=== PATIENT | female | born 1995 | race Caucasian/White ===

== ENCOUNTER 2017-05-06 17:59 | Emergency (ER) | payer OTHER ==
[2017-05-06 19:22] LABS: ABS Basophils 0 10^3/ul (0-0.2); ABS Eosinophils 0.3 10^3/ul (0-0.6); ABS Lymphocytes 1.9 10^3/ul (1.0-4.8); ABS Monocytes 0.5 10^3/ul (0-0.8); ABS Nucleated RBC 0 10^3/ul; Eosinophil % 3.4 % (0-6); Hematocrit 35 % (35-47); Hemoglobin 12.3 g/dl (12.0-16.0); Lymphocyte % 24.9 % (25-47); Mean Corpuscular HGB Conc 35 g/dl (31-36); Mean Corpuscular Hemoglobin 31 pg (27-31); Mean Corpuscular Volume 89 fL (80-97); Mean Platelet Volume 10 um3 (7.4-10.4); Nucleated Red Blood Cells % 0; Platelet Count 155 10^3/ul (150-450); Red Blood Count 3.96 10^6/ul (4.0-5.4); Red Cell Distribution Width 13 % (10.5-15); White Blood Count 7.7 10^3/ul (3.5-10.8)
[2017-05-06 19:34] LABS: INR 0.94 (0.77-1.02)
[2017-05-06 19:36] LABS: EGFR Non-African American 151.9 (>60)
[2017-05-06 19:56] LABS: Urine Appearance Clear; Urine Blood 1+ (Negative); Urine Color Colorless; Urine Ketones Negative (Negative); Urine Protein Negative (Negative); Urine Specific Gravity 1.001 (1.010-1.030); Urine Urobilinogen Negative (Negative)
--- NOTE | 2017-05-06 20:01 | RAD ---
INDICATION: 20 week with bleeding COMPARISON: None TECHNIQUE: Real-time sector scans were performed for the purposes of evaluation. This is not a anatomic survey. FINDINGS: There is a single intrauterine gestation in breech presentation. The placenta is anterior in location. There is a marginal placenta previa. There are no findings of abruption. cardiac activity is documented at 153 beats per minute. There is movement. The amniotic fluid index is normal. The cervix is closed measuring 3.9 cm. The estimated gestational age based on biparietal diameter, head circumference, abdominal circumference, and femur length corresponds to 19 weeks 5 days, 20 weeks 2 days, 20 weeks 2 days, and 21 weeks 0 days. The composite age is 20 weeks 3 days. The estimated due date is September 20, 2017. The weight is 355 g IMPRESSION: 20 WEEK 3 DAY GESTATION WITH CONFIRMATION OF CARDIAC ACTIVITY. MARGINAL PLACENTA PREVIA.
[2017-05-06 20:37] VITALS: BP 105/57
--- NOTE | 2017-05-06 20:46 | ED ---
Tiffanie Bustillos Thomas, scribed for Marcos Jhaveri MD on 05/06/17 at 1909 . - HPI Summary HPI Summary: The patient is a [id number] 21 year-old female complaining of light vaginal bleeding that began two hours ago. She has pelvic cramping. Her last ultrasound was last week. G1, P0. - History of Current Complaint Chief Complaint: EDOBProblems Stated Complaint: 20 WEEKS PREG/BLEEDING/CRAMPING Time Seen by Provider: 05/06/17 18:19 Hx Obtained From: Patient Chief Complaint: Vaginal Bleeding Onset/Duration: Still Present Timing: Constant Current Severity: Mild Pain Intensity: 5 Location of Pain: Other: - Pelvic Aggravating Factors: Nothing Alleviating Factors: Nothing Associated Signs and Symptoms: Positive: Vaginal Bleeding or Discharge - mild - Allergies/Home Medications Allergies/Adverse Reactions: Allergies Allergy/AdvReac Type Severity Reaction Status Date / Time MS Clarithromycin Allergy Hives Verified 06/22/12 12:11 [Clarithromycin] MS Erythromycin Allergy Hives Verified 06/22/12 12:11 [Erythromycin] PMH/Surg Hx/FS Hx/Imm Hx Opthamlomology History: Denies: Hx Legally Blind EENT History: Denies: Hx Hearing Aid Infectious Disease History: No Infectious Disease History: Denies: Traveled Outside the [place] in Last 30 Days - Family History Known Family History: Positive: Other - Patient denies relevant FHx - Social History Alcohol Use: None Substance Use Type: Reports: None Smoking Status (MU): Never Smoked Tobacco Review of Systems Negative: Fever Positive: other - Vaginal bleeding, pelvic cramping All Other Systems Reviewed And Are Negative: Yes Physical Exam - Summary Physical Exam Summary: Appearance: The patient is well-nourished in no acute distress and in no acute pain. Skin: The skin is warm and dry and skin color reflects adequate perfusion. HEENT: ~The head is normocephalic and atraumatic. The pupils are equal and reactive. The conjunctivae are clear and without drainage. ~Nares are patent and without drainage. ~Mouth reveals moist mucous membranes and the throat is without erythema and exudate. ~The external ears are intact. The ear canals are patent and without drainage. The tympanic membranes are intact. Neck: the neck is supple with full range of motion and non-tender. There are no carotid bruits. ~There is no neck vein distension. Respiratory: Chest is non-tender. ~Lungs are clear to auscultation and breath sounds are symmetrical and equal. Cardiovascular: Heart is regular rate and rhythm. ~There is no murmur or rub auscultated. ~~There is no peripheral edema and pulses are symmetrical and equal. Abdomen: The abdomen is soft. She has a gravid uterus. It is nontender. There are normal bowel sounds heard in all four quadrants and there is no organomegaly palpated. Musculoskeletal: There is no back tenderness noted. ~Extremities are non-tender with full range of motion. ~There is good capillary refill. ~There is no peripheral edema or calf tenderness elicited. Neurological: Patient is alert and oriented to person, place and time. ~The patient has symmetrical motor strength in all four extremities. ~Cranial nerves are grossly intact. Deep tendon reflexes are symmetrical and equal in all four extremities. Psychiatric: The patient has an appropriate affect and does not exhibit any anxiety or depression. - Physical Exam Triage Information Reviewed: Yes Vital Signs Reviewed: Yes Diagnostics - Vital Signs Vital Signs Temp Pulse Resp BP Pulse Ox 05/06/17 18:07 98.9 F 76 16 113/63 100 - Laboratory Lab Results: Lab Results 05/06/17 05/06/17 05/06/17 Range/Units 19:13 19:13 19:13 WBC 7.7 (3.5-10.8) 10^3/ul RBC 3.96 L (4.0-5.4) 10^6/ul Hgb 12.3 (12.0-16.0) g/dl Hct 35 (35-47) % MCV 89 (80-97) fL MCH 31 (27-31) pg MCHC 35 (31-36) g/dl RDW 13 (10.5-15) % Plt Count 155 (150-450) 10^3/ul MPV 10 (7.4-10.4) um3 Neut % (Auto) 64.6 (38-83) % Lymph % (Auto) 24.9 L (25-47) % [place] % (Auto) 6.8 (1-9) % Eos % (Auto) 3.4 (0-6) % Baso % (Auto) 0.3 (0-2) % Absolute Neuts (auto) 5.0 (1.5-7.7) 10^3/ul Absolute Lymphs (auto) 1.9 (1.0-4.8) 10^3/ul Absolute Monos (auto) 0.5 (0-0.8) 10^3/ul Absolute Eos (auto) 0.3 (0-0.6) 10^3/ul Absolute Basos (auto) 0 (0-0.2) 10^3/ul Absolute Nucleated RBC 0 10^3/ul Nucleated RBC % 0 INR (Anticoag Therapy) 0.94 (0.77-1.02) Sodium 137 (133-145) mmol/L Potassium 3.5 (3.5-5.0) mmol/L Chloride 106 (101-111) mmol/L Carbon Dioxide 25 (22-32) mmol/L Anion Gap 6 (2-11) mmol/L BUN 6 (6-24) mg/dL Creatinine 0.52 (0.51-0.95) mg/dL Est GFR ( Amer) 195.4 (>60) Est GFR (Non-Af Amer) 151.9 (>60) BUN/Creatinine Ratio 11.5 (8-20) Glucose 82 (70-100) mg/dL Lactic Acid (0.5-2.0) mmol/L Calcium 9.2 (8.6-10.3) mg/dL Total Bilirubin 0.80 (0.2-1.0) mg/dL AST 14 (13-39) U/L ALT 7 (7-52) U/L Alkaline Phosphatase 37 (34-104) U/L Total Protein 6.3 L (6.4-8.9) g/dL Albumin 3.7 (3.2-5.2) g/dL Globulin 2.6 (2-4) g/dL Albumin/Globulin Ratio 1.4 (1-3) Urine Color Urine Appearance Urine pH (5-9) Ur Specific [place] (1.010-1.030) Urine Protein (Negative) Urine Ketones (Negative) Urine Blood (Negative) Urine Nitrate (Negative) Urine Bilirubin (Negative) Urine Urobilinogen (Negative) Ur Leukocyte Esterase (Negative) Urine WBC (Auto) (Absent) Urine RBC (Auto) (Absent) Urine Bacteria (Absent) Urine Glucose (Negative) Blood Type Antibody Screen 05/06/17 05/06/17 05/06/17 Range/Units 19:13 19:13 19:33 WBC (3.5-10.8) 10^3/ul RBC (4.0-5.4) 10^6/ul Hgb (12.0-16.0) g/dl Hct (35-47) % MCV (80-97) fL MCH (27-31) pg MCHC (31-36) g/dl RDW (10.5-15) % Plt Count (150-450) 10^3/ul MPV (7.4-10.4) um3 Neut % (Auto) (38-83) % Lymph % (Auto) (25-47) % [place] % (Auto) (1-9) % Eos % (Auto) (0-6) % Baso % (Auto) (0-2) % Absolute Neuts (auto) (1.5-7.7) 10^3/ul Absolute Lymphs (auto) (1.0-4.8) 10^3/ul Absolute Monos (auto) (0-0.8) 10^3/ul Absolute Eos (auto) (0-0.6) 10^3/ul Absolute Basos (auto) (0-0.2) 10^3/ul Absolute Nucleated RBC 10^3/ul Nucleated RBC % INR (Anticoag Therapy) (0.77-1.02) Sodium (133-145) mmol/L Potassium (3.5-5.0) mmol/L Chloride (101-111) mmol/L Carbon Dioxide (22-32) mmol/L Anion Gap (2-11) mmol/L BUN (6-24) mg/dL Creatinine (0.51-0.95) mg/dL Est GFR ( Amer) (>60) Est GFR (Non-Af Amer) (>60) BUN/Creatinine Ratio (8-20) Glucose (70-100) mg/dL Lactic Acid 0.5 (0.5-2.0) mmol/L Calcium (8.6-10.3) mg/dL Total Bilirubin (0.2-1.0) mg/dL AST (13-39) U/L ALT (7-52) U/L Alkaline Phosphatase (34-104) U/L Total Protein (6.4-8.9) g/dL Albumin (3.2-5.2) g/dL Globulin (2-4) g/dL Albumin/Globulin Ratio (1-3) Urine Color Colorless Urine Appearance Clear Urine pH 7.0 (5-9) Ur Specific [place] 1.001 L (1.010-1.030) Urine Protein Negative (Negative) Urine Ketones Negative (Negative) Urine Blood 1+ H (Negative) Urine Nitrate Negative (Negative) Urine Bilirubin Negative (Negative) Urine Urobilinogen Negative (Negative) Ur Leukocyte Esterase Negative (Negative) Urine WBC (Auto) Absent (Absent) Urine RBC (Auto) Trace(0-2/hpf) (Absent) Urine Bacteria Absent (Absent) Urine Glucose Negative (Negative) Blood Type AB Positive Antibody Screen Negative Result Diagrams: 05/06/17 19:13 05/06/17 19:13 Lab Statement: Any lab studies that have been ordered have been reviewed, and results considered in the medical decision making process. - Additional Comments Diagnostic Additional Comments: ultrasound Interpreted by radiologist. Impression: 20 WEEK 3 DAY GESTATION WITH CONFIRMATION OF CARDIAC ACTIVITY. MARGINAL PLACENTA PREVIA. Dr. Jhaveri has reviewed this report. Course/Dx - Course Course Of Treatment: Ms. Dodson presented with one episode of seeing blood when she wiped. She is 20 weeks and has no other C/O. Her W/U showed only a mild placenta previa and she was quite stable here in the ED. - Diagnoses Provider Diagnoses: Second trimester vaginal bleeding Discharge - Discharge Plan Condition: Stable Disposition: HOME Patient Education Materials: Placenta Previa (ED) Referrals: Lavell Ho MD [Medical Doctor] - 05/07/17 Additional Instructions: Tomorrow morning, call the office of Dr. Ho, CHIEF GROWTH OFFICER. Return to the emergency department for any new or worsening symptoms. The documentation as recorded by the Tiffanie charles Thomas accurately reflects the service I personally performed and the decisions made by me, Marcos Jhaveri MD.
== END 2017-05-06 20:39 | disposition home or self-care (01) ==
LOC: ED 17:59
DX: O46.92 Antepartum hemorrhage, unspecified, second trimester (principal); Z3A.20 20 weeks gestation of pregnancy; R25.2 Cramp and spasm
CPT/HCPCS: 36415; 76815; 80053; 81003; 81015; 83605; 85025; 85610; 86850; 86900; 86901; 99283

== ENCOUNTER 2017-09-26 22:04 | Inpatient (IN) | payer OTHER ==
[2017-09-26] MEDS ORDERED: Promethazine INJ(RESTRICTED)* 25 MG/ML 1 ML VIAL IV ONE (23:00)
[2017-09-26] MEDS ORDERED: Nalbuphine* 10 MG/ML 1 ML VIAL IV ONE (23:00)
[2017-09-26 23:35] LABS: Hematocrit 37 % (35-47); Hemoglobin 12.5 g/dl (12.0-16.0); Mean Corpuscular HGB Conc 34 g/dl (31-36); Mean Corpuscular Hemoglobin 31 pg (27-31); Mean Corpuscular Volume 92 fL (80-97); Mean Platelet Volume 9.7 um3 (7.4-10.4); Platelet Count 243 10^3/ul (150-450); Red Blood Count 4.05 10^6/ul (4.00-5.40); Red Cell Distribution Width 14 % (10.5-15); White Blood Count 14.6 10^3/ul (3.5-10.8)
[2017-09-27] MEDS ORDERED: Penicillin G Potassium IV* 5,000,000 UNITS in NS 0.9% 100 ML* 100 ML IVPB ONE (02:40)
--- NOTE | 2017-09-27 02:49 | HP ---
General Information - Reason for Visit active labor - General Information Maternal Age: 21 Grav: 0 Para: 0 SAB: 0 IEA: 0 Estimated Due Date: 09/22/17 Determined By: LMP Maternal Blood Type and Rh: AB Positive - Results this Serology/RPR Result: Non-Reactive Rubella Result: Non-Immune HBsAg Result: Negative HIV Result: Negative GBS Culture Result: Positive Past Medical History Delivery History: See Records Pertinent Past Medical History: Non-Contributory Pertinent Past Surgical History: None Pertinent Family History: See Records Family History Comment: DM, bipolar disorder - Antepartal Records Antepartal Records: Reviewed, Complicated by: - GBS+, low lying placenta (resolved), echogenic foci Review of Systems Constitutional: Uncomfortable CV Complaint: No Respiratory: Shortness of Breath: No Gastrointestinal: Nausea, Vomiting Genitourinary: No Dysuria, No Bleeding, No Leaking Fluid, Spotting Musculoskeletal: Contractions Neurological: No Headache, No Visual Changes Movement: Normal Exam Allergies/Adverse Reactions: Allergies MS Clarithromycin [Clarithromycin] Allergy (Verified 09/26/17 22:42) Hives MS Erythromycin [Erythromycin] Allergy (Verified 09/26/17 22:42) Hives T: 99, P:88, R:20, BP:113/64, 96% Lab Values - Entire Visit: Laboratory Tests 09/26/17 09/26/17 23:25 23:25 WBC 14.6 H RBC 4.05 Hgb 12.5 Hct 37 MCV 92 MCH 31 MCHC 34 RDW 14 Plt Count 243 MPV 9.7 Blood Type AB Positive Antibody Screen Negative - Measurements Height: 5 ft 4 in Weight: 155 lb Weight in lbs: 155.493678 Body Mass Index (BMI): 26.6 Pre- Weight: 125 lb Weight Gained This : 30 lbs and 0 ozs - Exam Breast: Breast Exam Deferred CVA: No CVA Tenderness Extremities: No Edema Heart: Normal Rhythm/Heart Sounds HEENT: No Significant Findings Lungs: Clear Bilaterally Rectal: Rectal Exam Deferred Reflexes: DTR 2+ Thyroid: No Thyromegaly - Abdominal Exam Abdomen Exam: Fundal Height Consistent with Dates - Ultrasound/Biophysical Profile Ultrasound Status: Not Done Targeted Exam Findings Estimated Weight: 8lbs Presenting Part: Vertex Membrane Status: Intact Bleeding/Discharge: Bloody Show EFM Findings - External Monitor Findings Baseline Heart Rate: 140 External Monitor Findings: Accelerations Present, No Pattern of Variable or Late Decelerations, Variability Moderate, Baseline Stable Contractions: Regular Contraction Frequency: 3-4min Assessment/Plan - Assessment 21 y.o. Active labor - Obstetrical Risk Factors Obstetrical Risk Factors: GBS Positive - Plan Plan: Antibiotic Prophylaxis, Admit - Anticipate Vaginal Delivery - Date/Time of Admission Date of Admission: 09/27/17 Time of Admission: 01:00
[2017-09-27] MEDS ORDERED: OBEPIDURAL* 250 ML EPIDURAL ONE (02:55)
[2017-09-27] MEDS ORDERED: EPHEDrine (Pressors)* 50 MG/ML VIAL IV PUSH PRN ×2 (03:33)
[2017-09-27] MEDS ORDERED: Sodium Citrate/Citric Acid* 15 ML UDC PO PRN (03:33)
[2017-09-27] MEDS ORDERED: Famotidine TAB* 20 MG PO PRN (03:33)
[2017-09-27] MEDS ORDERED: Phenylephrine IV* 40 MCG/ML 10 ML SYRINGE IV PUSH PRN ×2 (03:33)
[2017-09-27] MEDS ORDERED: OBEPIDURAL* 250 ML EPIDURAL SCH (04:00)
[2017-09-27] MEDS: Penicillin G Potassium IV* 2,500,000 UNITS in NS 0.9% 100 ML* 100 ML IVPB SCH ×2 (07:40→11:41)
--- NOTE | 2017-09-27 08:09 | PN ---
Progress Note - Progress Note Date of Service: 09/27/17 SOAP: Subjective: [Pt c/o increased rectal pressure all the time. -LOF, -VB, +FM. Pt continues to have pain controlled by epidural. ] Objective: [T:98.8, BP: 115/57, P:101. FHT: Baseline 150, +accels, -decels, min variability. Ctx: 2-4 Cervix: 9/100/-1 ] Assessment: [21. y.o. 40w 5d, Labor FHT: Cat 1] Plan: [1) AROM- clear, bloody 2) Position changes for decent 3) Reevaluate PRN]
--- NOTE | 2017-09-27 09:17 | PN ---
Progress Note - Progress Note Date of Service: 09/27/17 Note: Pt c/o increased pressure and nausea. cervical exam unchanged. Advised pt continue position changes for asynclitism and drink some apple juice reevaluate in 30 min or sooner PRN.
[2017-09-27] MEDS ORDERED: Oxytocin in LR* 20 UNITS/1,000 ML BAG IVPB ONE (12:27)
[2017-09-27] MEDS ORDERED: Dibucaine 1% 28.35 GM TUBE PR PRN (13:06)
[2017-09-27] MEDS ORDERED: Measles, Mumps,Rubella VACC* 0.5 ML/VIAL SUBCUT ONE (13:06)
[2017-09-27] MEDS ORDERED: Glycerin ADULT SUPP PR PRN (13:06)
[2017-09-27] MEDS ORDERED: Misoprostol TAB* 200 MCG PR ONE (13:06)
[2017-09-27] MEDS ORDERED: Acetaminophen TAB* 325 MG PO PRN (13:06)
[2017-09-27] MEDS ORDERED: Witch Hazel PAD* JAR TOPICAL PRN (13:06)
--- NOTE | 2017-09-27 13:11 | PROCNOTE ---
[facility] OB: Delivery Note - Delivery A Date of : 09/27/17 Time of : 12:26 Sex: Female Score 1 Minute: 9 Score 5 Minutes: 9 Gestational Age in Weeks and Days at Delivery: 40 Weeks and 5 Days Delivery Method: Spontaneous Vaginal Labor: Spontaneous Amniotic Fluid: Bloody Estimated Blood Loss: 300 Anesthesia/Analgesia: IM/IV, CEI for Labor Delivered By: Rosy Asif - Nursery Level of Nursery: Regular/Bedside - Perineum Perineal Injury: Perineal Laceration, 1st Degree Perineal Repair: By Delivering Practioner - Events Delivery Events of Note: Full Course of Antibiotics Delivery Events of Note Comment: nuchal cord x 1 easily reduced
[2017-09-27] MEDS ORDERED: Oxytocin in LR* 20 UNITS/1,000 ML BAG IVPB SCH (14:00)
[2017-09-27] MEDS: Ibuprofen TAB* 600 MG PO PRN ×2 (14:07→20:18)
[2017-09-27] MEDS: Docusate CAP* 100 MG PO SCH ×2 (14:07→20:18)
[2017-09-27] MEDS ORDERED: Simethicone TAB* 80 MG TAB.CHEW PO SCH (17:30)
[2017-09-28] MEDS: Ibuprofen TAB* 600 MG PO PRN ×4 (04:44→22:29)
[2017-09-28 05:54] LABS: ABS Basophils 0.1 10^3/ul (0-0.2); ABS Eosinophils 0.3 10^3/ul (0-0.6); ABS Lymphocytes 3.3 10^3/ul (1.0-4.8); ABS Monocytes 1.2 10^3/ul (0-0.8); ABS Neutrophils 9.4 10^3/ul (1.5-7.7); ABS Nucleated RBC 0 10^3/ul; Eosinophil % 2.2 % (0-6); Hematocrit 33 % (35-47); Hemoglobin 11.1 g/dl (12.0-16.0); Lymphocyte % 23.5 % (25-47); Mean Corpuscular HGB Conc 34 g/dl (31-36); Mean Corpuscular Hemoglobin 31 pg (27-31); Mean Corpuscular Volume 92 fL (80-97); Mean Platelet Volume 9.3 um3 (7.4-10.4); Nucleated Red Blood Cells % 0.1; Platelet Count 195 10^3/ul (150-450); Red Blood Count 3.53 10^6/ul (4.00-5.40); Red Cell Distribution Width 14 % (10.5-15); White Blood Count 14.3 10^3/ul (3.5-10.8)
[2017-09-28] MEDS ORDERED: Ferrous Gluconate TAB* 324 MG TAB PO SCH (09:00)
[2017-09-28] MEDS: Docusate CAP* 100 MG PO SCH ×3 (10:39→22:30)
--- NOTE | 2017-09-28 18:55 | PTEDU ---
Patient Name: ADILSON MIN ADILSON MIN selected video: Never Ever Shake a Baby to view on 09/28/2017 at 6:54:34 PM [facility] [id number]
[2017-09-29 08:09] VITALS: BP 100/54
== END 2017-09-29 10:45 | disposition home or self-care (01) | DRG 560 ==
LOC: MCHOBOUT 22:04 → MCHOB 09-27 02:08
PROVIDERS: ADMIT Midwife; ATTEND Midwife
PROC: 10E0XZZ Delivery of Products of Conception, External Approach (ICD-10-PCS; principal; 2017-09-27)
PROC: 10907ZC Drainage of Amniotic Fluid, Therapeutic from Products of Conception, Via Natural or Artificial Opening (ICD-10-PCS; 2017-09-27)
PROC: 4A1HXCZ Monitoring of Products of Conception, Cardiac Rate, External Approach (ICD-10-PCS; 2017-09-27)
PROC: 0HQ9XZZ Repair Perineum Skin, External Approach (ICD-10-PCS; 2017-09-27)
PROC: 0UQMXZZ Repair Vulva, External Approach (ICD-10-PCS; 2017-09-27)
DX: O48.0 Post-term pregnancy (principal); O99.824 Streptococcus B carrier state complicating childbirth; Z81.8 Family history of other mental and behavioral disorders; Z83.3 Family history of diabetes mellitus; Z88.1 Allergy status to other antibiotic agents; Z3A.40 40 weeks gestation of pregnancy; Z37.0 Single live birth; O69.81X0 Labor and delivery complicated by cord around neck, without compression, not applicable or unspecified; O70.0 First degree perineal laceration during delivery; O32.8XX0 Maternal care for other malpresentation of fetus, not applicable or unspecified
CPT/HCPCS: 36415; 85025; 85027; 86850; 86900; 86901; 90707; A9270-GY; J2300; J2540; J2550

== ENCOUNTER 2019-03-01 19:07 | Emergency (ER) | payer OTHER ==
[2019-03-01 19:40] LABS: Urine Appearance Cloudy; Urine Bilirubin Negative (Negative); Urine Blood Negative (Negative); Urine Color Yellow; Urine Glucose Negative (Negative); Urine Ketones Negative (Negative); Urine Nitrite Negative (Negative); Urine Protein Negative (Negative); Urine Specific Gravity 1.011 (1.010-1.030); Urine Urobilinogen Negative (Negative)
--- NOTE | 2019-03-01 19:44 | ED ---
GI/ HPI - HPI Summary HPI Summary: Patient is a 23 y/o F who is 25 weeks who presents to [facility] with complaints of lower back pain and increased frequency of urination. She reports pain has been present for the past 4-5 days. Pain has been constant since onset and is noted to be worse on her right side. Radiation of pain to flanks bilaterally is reported as well. No changes in bowel movements noted. On triage , pain is rated 8/10. Movements aggravates her pain. 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 Patient is followed by [facility]. Home medications and allergies are reviewed. Family is present in the room. - History of Current Complaint Chief Complaint: EDUrogenitalProblems Time Seen by Provider: 03/01/19 19:29 Stated Complaint: POSS UTI PER PT Hx Obtained From: Patient Onset/Duration: Started Days Ago, Still Present Timing: Constant, Lasting Days Severity: Severe Current Severity: Severe Pain Intensity: 8 Location of Pain: Other - lower back Pain Radiates to: Flank Associated Signs and Symptoms: Positive: Back Pain, UTI Symptoms - increased urination frequency, Other: - negative - changes in bowel movements Aggravating Factor(s): Movement, Movement - Allergy/Home Medications Allergies/Adverse Reactions: Allergies Allergy/AdvReac Type Severity Reaction Status Date / Time clarithromycin Allergy Hives Verified 03/01/19 19:16 erythromycin base Allergy Hives Verified 03/01/19 19:16 PMH/Surg Hx/FS Hx/Imm Hx Sensory History: Denies: Hx Legally Blind, Hx Deafness, Hx Hearing Aid Opthamlomology History: Denies: Hx Legally Blind EENT History: Denies: Hx Deafness Infectious Disease History: No Infectious Disease History: Denies: Traveled Outside the [place] in Last 30 Days - Family History Known Family History: Negative: Cardiac Disease, Hypertension, Diabetes - Social History Alcohol Use: None Substance Use Type: Reports: None Smoking Status (MU): Never Smoked Tobacco Have You Smoked in the Last Year: No Review of Systems Gastrointestinal: Other - negative - changes in bowel movements Positive: frequency - increased frequency of urination Musculoskeletal: Other - positive - back pain All Other Systems Reviewed And Are Negative: Yes Physical Exam - Summary Physical Exam Summary: Appearance: The patient is well-nourished in no acute distress and in no acute pain. Skin: The skin is warm and dry, and skin color reflects adequate perfusion. HEENT: The head is normocephalic and atraumatic. The pupils are equal and reactive. The conjunctivae are clear and without drainage. Nares are patent and without drainage. Mouth reveals moist mucous membranes, and the throat is without erythema and exudate. The external ears are intact. The ear canals are patent and without drainage. The tympanic membranes are intact. Neck: The neck is supple with full range of motion and non-tender. There are no carotid bruits. There is no neck vein distension. Respiratory: Chest is non-tender. Lungs are clear to auscultation and breath sounds are symmetrical and equal. Cardiovascular: Heart is regular rate and rhythm. There is no murmur or rub auscultated. There is no peripheral edema and pulses are symmetrical and equal. Abdomen: Abdomen is gravid. The abdomen is soft and non-tender. There are normal bowel sounds heard in all four quadrants and there is no organomegaly palpated. Musculoskeletal: Mild right CVA tenderness is noted. Extremities are non-tender with full range of motion. There is good capillary refill. There is no peripheral edema or calf tenderness elicited. Neurological: Patient is alert and oriented to person, place and time. The patient has symmetrical motor strength in all four extremities. Cranial nerves are grossly intact. Deep tendon reflexes are symmetrical and equal in all four extremities. Psychiatric: The patient has an appropriate affect and does not exhibit any anxiety or depression. Triage Information Reviewed: Yes Vital Signs On Initial Exam: Initial Vitals Temp Pulse Resp BP Pulse Ox 98.3 F 84 16 122/70 100 03/01/19 19:12 03/01/19 19:12 03/01/19 19:12 03/01/19 19:12 03/01/19 19:12 Vital Signs Reviewed: Yes Procedures - Sedation Patient Received Moderate/Deep Sedation with Procedure: No Diagnostics - Vital Signs Vital Signs Temp Pulse Resp BP Pulse Ox 03/01/19 19:12 98.3 F 84 16 122/70 100 - Laboratory Lab Statement: Any lab studies that have been ordered have been reviewed, and results considered in the medical decision making process. GIGU Course/Dx - Course Course Of Treatment: Ms. Dodson came in complaining of a day or so back pain right worse than the left. She was tender to palpation as well as CVA tenderness. She is about 25 weeks is not her first. 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 She was nontoxic in appearance is stable vitals. Her abdomen was soft and nontender and heart tones were 140s. Her urinalysis was equivocal and I will treat her with Macrodantin for that. I recommended keeping her appointment on and returning if she is worsening in any way. - Diagnoses Provider Diagnoses: UTI (urinary tract infection) Discharge ED - Sign-Out/Discharge Documenting (check all that apply): Patient Departure - DISCHARGE - Discharge Plan Condition: Stable Disposition: HOME Prescriptions: Nitrofurantoin Monohyd/M-Cryst [Macrobid 100 mg Capsule] 100 mg PO BID #20 cap Patient Education Materials: Urinary Tract Infection in Women (ED) Referrals: Session Dino LAND [Primary Care Provider] - Additional Instructions: Keep your scheduled OB appointment this . Please return to ED for any new or worsening symptoms. - Billing Disposition and Condition Condition: STABLE Disposition: Home - Attestation Statements Document Initiated by Cosmo: Yes Documenting Scribe: RADHA MARTIN Provider For Whom Cosmo is Documenting (Include Credential): BRANDEN TRIPATHI MD Scribe Attestation: I, RADHA MARTIN, scribed for BRANDEN TRIPATHI MD on 03/01/19 at 2124. Scribe Documentation Reviewed: Yes Provider Attestation: The documentation as recorded by the RADHA charles accurately reflects the service I personally performed and the decisions made by me, BRANDEN TRIPATHI MD Status of Scribe Document: Viewed
[2019-03-01 19:59] LABS: Urine Bacteria Absent (Absent); Urine Red Blood Cell Absent (Absent); Urine Squamous Epithelial Cell Present (Absent); Urine White Blood Cell 3+(>20/hpf) (Absent)
[2019-03-01] MEDS ORDERED: Nitrofurantoin Macrocrystals* 100 MG CAP PO ONE ×2 (20:30→20:31)
[2019-03-01 20:46] VITALS: BP 99/56
== END 2019-03-01 20:44 | disposition home or self-care (01) ==
LOC: ED 19:07
DX: N39.0 Urinary tract infection, site not specified (principal); R35.0 Frequency of micturition; M54.5 Low back pain
CPT/HCPCS: 81003; 81015; 87077; 87086; 87186; 99282; A9270-GY

== ENCOUNTER 2019-06-17 15:55 | Inpatient (IN) | payer OTHER ==
[2019-06-17] MEDS ORDERED: Buffered Lidocaine 1% SYRIN* 1 ML/SYRINGE INTRADERM ONE (16:18)
[2019-06-17] MEDS ORDERED: Lactated Ringers 1000 ML Bag* 1,000 ML IV ONE ×2 (16:18→17:28)
[2019-06-17] MEDS ORDERED: OBEPIDURAL* 250 ML EPIDURAL ONE (16:46)
[2019-06-17 16:50] LABS: ABS Eosinophils 0.1 10^3/ul (0-0.6); ABS Lymphocytes 1.4 10^3/ul (1.0-4.8); ABS Monocytes 0.5 10^3/ul (0-0.8); ABS Neutrophils 8.2 10^3/ul (1.5-7.7); Eosinophil % 0.6 %; Hematocrit 41 % (35-47); Hemoglobin 14.2 g/dL (12.0-16.0); Lymphocyte % 13.7 %; Mean Corpuscular HGB Conc 35 g/dL (31-36); Mean Corpuscular Hemoglobin 31 pg (27-31); Mean Corpuscular Volume 90 fL (80-97); Mean Platelet Volume 10.5 fL (7.4-10.4); Nucleated Red Blood Cells % 0.1; Platelet Count 172 10^3/uL (150-450); Red Blood Count 4.56 10^6 /uL (3.70-4.87); Red Cell Distribution Width 14 % (10-15); White Blood Count 10.1 10^3/uL (3.5-10.8)
[2019-06-17] MEDS ORDERED: Lactated Ringers 1000 ML Bag* 1,000 ML IV SCH ×3 (17:00→23:00)
[2019-06-17 17:06] LABS: Urine Benzodiazepine Screen None Detected (None Detect); Urine Opiates Screen None Detected (None Detect)
[2019-06-17] MEDS ORDERED: Phenylephrine 40 MCG/ML SYRINGE IV PUSH PRN ×2 (17:28)
[2019-06-17] MEDS ORDERED: Sodium Citrate/Citric Acid* 15 ML UDC PO PRN (17:28)
[2019-06-17] MEDS ORDERED: Famotidine TAB* 20 MG PO PRN (17:28)
--- NOTE | 2019-06-17 17:51 | HP ---
General Information - Reason for Visit Pt reports UCs starting last night and increasing in strength and intensity since her membranes were swept in the office today. Denies LOF, reports active FM. - General Information Maternal Age: 23 Grav: 2 Para: 1 SAB: 0 IEA: 0 Estimated Due Date: 06/13/19 Determined By: LMP Gestational Age in Weeks/Days: 40 4/7 Maternal Blood Type and Rh: AB Positive - Results this Serology/RPR Result: Non-Reactive Rubella Result: Immune HBsAg Result: Negative HIV Result: Negative GBS Culture Result: Negative Past Medical History Delivery History: Hx Uncomplicated Vaginal Delivery Pertinent Past Medical History: See Records - vesicoureteral reflux as a baby Pertinent Past Surgical History: None Pertinent Family History: See Records - DM, bipolar disease - Antepartal Records Antepartal Records: Reviewed, Uncomplicated Review of Systems Constitutional: Uncomfortable CV Complaint: No Respiratory: Shortness of Breath: No Gastrointestinal: No Nausea/Vomiting, Normal Bowel Movement Genitourinary: No Dysuria, No Bleeding, No Leaking Fluid Musculoskeletal: No Epigastric Pain, Contractions Neurological: No Headache, No Visual Changes Movement: Normal Exam Allergies/Adverse Reactions: Allergies clarithromycin Allergy (Verified 06/17/19 16:37) Hives erythromycin base Allergy (Verified 06/17/19 16:37) Hives T-97.6, P-85, R-20, BP-117/73, O2-100% Lab Values - Entire Visit: Laboratory Tests 06/17/19 06/17/19 06/17/19 16:22 16:22 16:22 WBC 10.1 RBC 4.56 Hgb 14.2 Hct 41 MCV 90 MCH 31 MCHC 35 RDW 14 Plt Count 172 MPV 10.5 H Neut % (Auto) 81.0 Lymph % (Auto) 13.7 [place] % (Auto) 4.6 Eos % (Auto) 0.6 Baso % (Auto) 0.1 Absolute Neuts (auto) 8.2 H Absolute Lymphs (auto) 1.4 Absolute Monos (auto) 0.5 Absolute Eos (auto) 0.1 Absolute Basos (auto) 0.0 Absolute Nucleated RBC 0.0 Nucleated RBC % 0.1 Urine Opiates Screen None detected Ur Barbiturates Screen None detected Ur Phencyclidine Scrn None detected Ur Amphetamines Screen None detected U Benzodiazepines Scrn None detected Urine Cocaine Screen None detected U Cannabinoids Screen None detected Blood Type AB Positive Antibody Screen Negative - Measurements Height: 5 ft 4 in Weight: 72.575 kg Weight in lbs: 160.602933 Body Mass Index (BMI): 27.4 Pre- Weight: 63.503 kg Weight Gained This : 20 lbs and 0 ozs - Exam Breast: Breast Exam Deferred CVA: No CVA Tenderness Extremities: No Edema Heart: Normal Rhythm/Heart Sounds HEENT: No Significant Findings Lungs: Clear Bilaterally Rectal: Rectal Exam Deferred Reflexes: DTR 2+ Thyroid: No Thyromegaly - Abdominal Exam Abdomen Exam: Non-Tender, Fundal Height Consistent with Dates - Ultrasound/Biophysical Profile Ultrasound Status: Not Done Targeted Exam Findings See L&D Outpatient Visit Provider Note for Findings: N/A Estimated Weight: 8# Cervical Exam: 4cm Effacement: 80% Station: 0 Presenting Part: Vertex Membrane Status: Intact Bleeding/Discharge: None EFM Findings - External Monitor Findings Baseline Heart Rate: 130 External Monitor Findings: Accelerations Present, No Pattern of Variable or Late Decelerations, Variability Moderate, Baseline Stable Contractions: Regular, Moderate, 45-90 Seconds Contraction Frequency: 2-3 Assessment/Plan - Assessment 23 year old at 40 4/7 weeks gestation in active labor with intact membranes , GBS negative. No evidence of acidemia. - Obstetrical Risk Factors Obstetrical Risk Factors: Post-Dates - Plan Plan: Admit - Anticipate Vaginal Delivery Plan Comment: Epidural for pain relief. - Date/Time of Admission Date of Admission: 06/17/19 Time of Admission: 16:16
[2019-06-17] MEDS ORDERED: OBEPIDURAL* 250 ML EPIDURAL SCH (18:00)
--- NOTE | 2019-06-17 20:38 | PN ---
Progress Note - Progress Note Date of Service: 06/17/19 SOAP: Subjective: Pt reports some increased pressure. Objective: FHR exhibited probable prolonged deceleration for several minutes. Not tracing throughout. When pt examined cervix found to be 8 cm/ 100%/ +1 station with bulging bag. FHR currently baseline 135/ moderate variability/ no accels/ no decels. UCs: 2-3 minutes Assessment: Pt making great progress. Likely deceleration was related to rapid dilation/ descent. Plan: Closely monitor maternal and status. Anticipate .
[2019-06-17] MEDS ORDERED: Acetaminophen TAB* 325 MG PO ONE (21:33)
[2019-06-17] MEDS ORDERED: Glycerin ADULT SUPP PR PRN (22:43)
[2019-06-17] MEDS ORDERED: Dibucaine 1% 28.35 GM TUBE PR PRN (22:43)
[2019-06-17] MEDS ORDERED: Witch Hazel PAD* JAR TOPICAL PRN (22:43)
[2019-06-17] MEDS ORDERED: Acetaminophen TAB* 325 MG PO PRN (22:43)
--- NOTE | 2019-06-18 01:09 | PROCNOTE ---
[facility] OB: Delivery Note - Delivery A Date of : 06/17/19 Time of : 22:16 Cameron Sex: Female Weight at : 4.02 kg Score 1 Minute: 5 Score 5 Minutes: 9 Gestational Age in Weeks and Days at Delivery: 40 Weeks and 4 Days Delivery Method: Spontaneous Vaginal Labor: Spontaneous Did Patient attempt ?: N/A, No Previous Amniotic Fluid: Clear Anesthesia/Analgesia: CEI for Labor - Nursery Level of Nursery: Regular/Bedside - Perineum Perineal Injury: None/Intact Perineal Repair: None - Events Delivery Events of Note: Shoulder Dystocia, Supplemental O2 to Mother Delivery Events of Note Comment: 50 seconds, resolved with Dario and suprapubic - Additional Delivery Notes Additional Delivery Notes: Pt admitted to Labor and Delivery in active labor, care assumed after pt cleared for midwifery care by Dr. Juárez. Pt requested and received epidural for pain relief to good effect. Pt made steady progress. Eventually AROM performed with pt consent to clear fluid. Pt then quickly progressed to full dilation and urge to push. Pt pushed with good effort and rapid descent. Pt soon brought infant to and delivery of the head. After shoulders did not release with gentle traction shoulder dystocia identified. Nurses informed and requested to pull emergency [place]ijer[place]. Shoulder dystocia resolved after 50 seconds using Dario and suprapubic pressure. Infant placed on maternal abdomen, initially stunned, but with HR> 100. After initial stimulation failed to produce a cry, cord milked and clamped x2 and cut by 's father. Clinic Licensed Practical Nurse and special care RN were present in response to emergency [place]. transferred to [facility] where she was given CPAP for 30 seconds. soon was breathing and crying and was transferred back to pt and placed skin to skin. While infant was at warmer, placenta delivered spontaneous and froilan. Minimal bleeding noted. Examination of the perineum found it to be intact. Pt and stable at this time. Anticipate normal course.
[2019-06-18] MEDS ORDERED: Docusate CAP* 100 MG ONE (01:14)
[2019-06-18] MEDS: Ibuprofen TAB* 600 MG PO PRN ×4 (01:16→20:56)
[2019-06-18] MEDS: Docusate CAP* 100 MG PO SCH ×4 (01:17→20:56)
[2019-06-18 06:30] LABS: ABS Eosinophils 0.1 10^3/ul (0-0.6); ABS Lymphocytes 2.4 10^3/ul (1.0-4.8); ABS Monocytes 0.8 10^3/ul (0-0.8); ABS Neutrophils 8.6 10^3/ul (1.5-7.7); Eosinophil % 0.7 %; Hematocrit 36 % (35-47); Hemoglobin 12.6 g/dL (12.0-16.0); Mean Corpuscular HGB Conc 35 g/dL (31-36); Mean Corpuscular Hemoglobin 31 pg (27-31); Mean Corpuscular Volume 90 fL (80-97); Mean Platelet Volume 10.3 fL (7.4-10.4); Platelet Count 144 10^3/uL (150-450); Red Blood Count 4.03 10^6 /uL (3.70-4.87); Red Cell Distribution Width 14 % (10-15); White Blood Count 11.9 10^3/uL (3.5-10.8)
[2019-06-18] MEDS ORDERED: Ferrous Gluconate TAB* 324 MG TAB PO SCH (09:00)
[2019-06-18] MEDS ORDERED: Varicella Virus Vaccine Live* 0.5 ML VIAL SUBCUT ONE (14:32)
[2019-06-19] MEDS: Ibuprofen TAB* 600 MG PO PRN (04:37)
[2019-06-19 07:22] VITALS: BP 101/68
[2019-06-19] MEDS: Docusate CAP* 100 MG PO SCH (09:06)
== END 2019-06-19 10:50 | disposition home or self-care (01) | DRG 560 ==
LOC: MCHOBOUT 15:55 → MCHOB 16:16
PROVIDERS: ADMIT Midwife; ATTEND Midwife
PROC: 10E0XZZ Delivery of Products of Conception, External Approach (ICD-10-PCS; principal; 2019-06-17)
PROC: 10907ZC Drainage of Amniotic Fluid, Therapeutic from Products of Conception, Via Natural or Artificial Opening (ICD-10-PCS; 2019-06-17)
PROC: 4A1HXCZ Monitoring of Products of Conception, Cardiac Rate, External Approach (ICD-10-PCS; 2019-06-17)
DX: O48.0 Post-term pregnancy (principal); Z37.0 Single live birth; O66.0 Obstructed labor due to shoulder dystocia; O76 Abnormality in fetal heart rate and rhythm complicating labor and delivery; Z88.1 Allergy status to other antibiotic agents; Z3A.40 40 weeks gestation of pregnancy
CPT/HCPCS: 36415; 80307; 85025; 86850; 86900; 86901; A9270-GY; G0480